=== PATIENT | female | born 1970 | race Caucasian/White ===

== ENCOUNTER 2020-10-13 14:28 | Outpatient (CLI) | payer OTHER, SELFPAY ==
--- NOTE | ~2020-10-13 | MM_ITS ---
EXAMINATION: MM screening lexis BI w placido HISTORY: Screening TECHNIQUE: Craniocaudal and mediolateral oblique 3-D tomosynthesis images were obtained and synthetic 2-D images were generated. CAD analysis was submitted and interpreted. COMPARISON: Comparison to multiple prior studies sequentially, with oldest reviewed study dated 05/31. BREAST PARENCHYMAL COMPOSITION: There are scattered areas of fibroglandular density. FINDINGS: There is no evidence of suspicious mass, calcification, or architectural distortion to sugg est malignancy in either breast. There has been no suspicious interval change. IMPRESSION: 1. No mammographic evidence of malignancy. 2. Recommend routine screening mammography in one year. BI-RADS Category 1: Negative Reviewed, dictated and finalized at location A.
== END 2020-10-13 14:29 | disposition home or self-care (01) ==
PROVIDERS: PCP Emergency Medicine; Visit Provider Obstetrics & Gynecology
DX: Z12.31 Encounter for screening mammogram for malignant neoplasm of breast (principal)
CPT/HCPCS: 77063; 77067

== ENCOUNTER 2021-06-17 16:13 | Emergency (ER) | payer OTHER, SELFPAY ==
--- NOTE | ~2021-06-17 | XR_ITS ---
EXAMINATION: XR chest 2V EXAM DATE: 06/17/2021 17:17 INDICATION: PT SOB Off On X 3 Wks,Also Increased Hr. TECHNIQUE: Frontal and lateral projections of the chest obtained and reviewed. There is no prior brad dy for comparison. FINDINGS: The lungs are clear. There are no pleural effusions. The cardiomediastinal silhouette is within normal limits. There is no pneumothorax suspected. The bones and soft tissues are unremarkab le. There are cholecystectomy clips. IMPRESSION: No acute cardiopulmonary findings. Reviewed, dictated and finalized at location G. TURE WINDER
--- NOTE | 2021-06-17 16:14 | ECG_ITS ---
Measurements Intervals [place] Rate: 88 P: 5 NC: 148 QRS: 4 QRSD: 98 T: 64 QT: 359 QTc: 436 Interpretive Statements SINUS RHYTHM BORDERLINE ST-T WAVE ABNORMALITY- ANT/HIGH LAT LEADS BORDERLINE ECG Electronically Signed On 06-17-2021 18:14:17 STATOR PLATE WASHER by Castillo Perez D.O.
[2021-06-17 16:54] VITALS: BP 126/84; PULSE 84; RESP 16; TEMP 36.2; O2SAT 97
--- NOTE | 2021-06-17 17:07 | ED.ARRPALP ---
HPI - Arrhythmia/Palpitations General Chief Complaint: Arrhythmia/Palpitations Stated Complaint: sob, palpations Time Seen by Provider: 06/17/21 16:45 Source: patient Mode of arrival: ambulatory Limitations: no limitations History of Present Illness HPI narrative: Patient is a 50-year-old female complaining palpitations accompanied by shortness of breath that started earlier today, had 2 episodes of but now resolved. Patient admits to having a few drinks last night and also a skinny darren today. Patient denies any chest pain, abdominal pain, nausea, vomiting, diaphoresis, fever or chills. Related Data Home Medications Medication Instructions Recorded Confirmed rosuvastatin mg 06/17/21 06/17/21 Allergies Allergy/AdvReac Type Severity Reaction Status Date / Time No Known Allergies Allergy Unknown Verified 06/17/21 16:56 Review of Systems Review of Systems: All systems reviewed & are unremarkable except as noted in HPI and below Constitutional: Constitutional: Denies body ache(s), Denies chills, Denies excessive sweating, Denies fatigue, Denies fever(s), Denies headache(s), Denies lethargy, Denies malaise, Denies weakness and Denies weight loss Eyes: Eyes: Denies blurry vision, Denies change in vision and Denies loss of vision ENT: Denies dizziness, Denies ear discharge, Denies headache(s), Denies lip swelling, Denies epistaxis, Denies nasal congestion, Denies neck pain, Denies throat swelling and Denies tongue swelling Cardiovascular: Cardiovascular: Denies chest pain, Denies chest pain at rest, Denies chest pain with activity, Denies diaphoresis, Denies rapid heart rate, Denies edema, Denies irregular heart rhythm, Denies lightheadedness, Denies dyspnea and Denies dyspnea on exertion Respiratory: Respiratory: Denies chest congestion, Denies cough, Denies hemoptysis, Denies dyspnea and Denies dyspnea on exertion Gastrointestinal: Gastrointestinal: Denies abdominal pain, Denies melena, Denies hematochezia, Denies diarrhea, Denies nausea, Denies vomiting and Denies hematemesis Musculoskeletal: Musculoskeletal: Denies abnormal gait, Denies deformity, Denies joint swelling, Denies limited range of motion, Denies neck pain and Denies numbness Neurologic: Denies Abnormal speech present, Denies abnormal gait, Denies confusion, Denies dizziness, Denies headache(s), Denies focal weakness, Denies loss of vision, Denies numbness, Denies Other visual disturbances, Denies Sensory deficit (Neuro) and Denies weakness Psychiatric: Psychiatric: Denies confusion, Denies depression, Denies auditory hallucinations, Denies homicidal ideation and Denies suicidal ideation Endocrine: Endocrine: Denies cold intolerance, Denies excessive sweating, Denies fatigue, Denies heat intolerance and Denies palpitations Hematologic/Lymphatic: Hematologic/Lymphatic: Denies easy bleeding and Denies easy bruising Allergic/Immunologic: Allergic/Immunologic: Denies lip swelling, Denies throat swelling and Denies tongue swelling [facility] Past Medical History Medical History Adenomatous colon polyp Angiomyxoma Colitis GERD (gastroesophageal reflux disease) High risk HPV infection 08/18/20 Hyperlipidemia Rectal bleeding Surgical History Surgical History H/O esophagogastroduodenoscopy Hx of cholecystectomy Family History Family History Father Hypertension Family history of diabetes mellitus in first degree relative Grandparent Family history of malignant neoplasm of ovary Family history of pulmonary embolism, Onset Age: 64 Other Carcinoma of colon Family history of malignant neoplasm of male breast Social History Social History Smoking status: Never smoker Second hand tobacco smoke exposure: No Alcohol intake
[2021-06-17 17:18] LABS: Basophils Percent Auto 0.8 % (0.2-1.2); Eosinophils Absolute Auto 0.2 K/mm3 (0-0.3); Hematocrit 42.5 % (37.0-47.0); Hemoglobin 13.5 g/dL (12.0-15.0); Immature Granulocyte Absolute 0.02 K/mm3 (0.00-0.031); Immature Granulocyte Percent A 0.4 % (0-0.5); Lymphocytes Absolute Auto 1.95 K/mm3 (0.9-3.2); Lymphocytes Percent Auto 38.9 % (18.3-44.2); Mean Corpuscular HGB Conc 31.8 g/dl (32-36); Mean Corpuscular Hemoglobin 28.3 pg (26-34); Mean Corpuscular Volume 89.1 fl (80-100); Mean Platelet Volume 10.5 fl (7.4-10.4); Monocytes Absolute Auto 0.3 K/mm3 (0.1-0.6); Monocytes Percent Auto 6.6 % (2.6-8.5); Neutrophils Absolute Auto 2.5 K/mm3 (1.3-6.7); Neutrophils Percent Auto 50.3 % (45.5-73.1); Platelet Count Result 279 k/mm3 (150-375); Red Blood Count 4.77 M/mm3 (4.2-5.4)
[2021-06-17 17:29] LABS: Anion Gap 9 mmol/L (8-16); Blood Urea Nitrogen 10 mg/dL (7-17); Calcium 9.4 mg/dL (8.4-10.2); Carbon Dioxide 26 mmol/L (22-30); Chloride 107 mmol/L (98-107); Estimated CRCL calculation 58 ml/min; Estimated Glomerular Filt Rate > 60; Glucose 64 mg/dL (65-110); Potassium 3.5 mmol/L (3.4-5.0); Sodium 142 mmol/L (137-145)
[2021-06-17 17:41] LABS: Troponin I < 0.012 ng/mL (0.000-0.034)
[2021-06-17 17:42] LABS: D Dimer 0.27 ug/mL (<0.48)
[2021-06-17 18:35] VITALS: BP 116/75; PULSE 70; RESP 16; O2SAT 98
== END 2021-06-17 18:36 | disposition home or self-care (01) ==
PROVIDERS: Emergency Provider Emergency Medicine; PCP Emergency Medicine
DX: R00.2 Palpitations (principal); Z86.010 Personal history of colon polyps; K21.9 Gastro-esophageal reflux disease without esophagitis; E78.5 Hyperlipidemia, unspecified; R94.31 Abnormal electrocardiogram [ECG] [EKG]
CPT/HCPCS: 36415; 71046; 80048; 84484; 85025; 85380; 93005; 99284

== ENCOUNTER 2021-11-06 09:18 | Outpatient (CLI) | payer OTHER, SELFPAY ==
--- NOTE | ~2021-11-06 | US_ITS ---
EXAMINATION: US soft tissue groin RT DATE: 11/06/2021 09:39 INDICATION: Right lower quadrant and right groin pain. TECHNIQUE: Grayscale and Doppler ultrasound images of the right groin and inguinal area, in the area of pain were obtained. COMPARISON: None. FINDINGS: No solid or cystic mass. No fluid collection. No change with the Valsalva maneuver. IMPRESSION: 1. No sonographic abnormality in the right groin/right inguinal area. Reviewed, dictated and finalized at location K.
== END 2021-11-06 09:19 ==
PROVIDERS: PCP Emergency Medicine; Referring Provider Obstetrics & Gynecology; Visit Provider Surgery
DX: R10.31 Right lower quadrant pain (principal)
CPT/HCPCS: 76882

== ENCOUNTER 2021-11-16 15:13 | Outpatient (CLI) | payer OTHER, SELFPAY ==
--- NOTE | ~2021-11-16 | MM_ITS ---
EXAMINATION: MM screening lexis BI w placido HISTORY: Screening TECHNIQUE: Craniocaudal and mediolateral oblique 3-D tomosynthesis images were obtained and synthetic 2-D images were generated. CAD analysis was submitted and interpreted. COMPARISON: Comparison to multiple prior studies sequentially, with oldest reviewed study dated 07/23. BREAST PARENCHYMAL COMPOSITION: There are scattered areas of fibroglandular density. FINDINGS: There is no evidence of suspicious mass, calcification, or architectural distortion to sugg est malignancy in either breast. There has been no suspicious interval change. IMPRESSION: 1. No mammographic evidence of malignancy. 2. Recommend routine screening mammography in one year. BI-RADS Category 1: Negative Reviewed, dictated and finalized at location A.
== END 2021-11-16 15:14 | disposition home or self-care (01) ==
PROVIDERS: PCP Emergency Medicine; Visit Provider Obstetrics & Gynecology
DX: Z12.31 Encounter for screening mammogram for malignant neoplasm of breast (principal)
CPT/HCPCS: 77063; 77067

== ENCOUNTER → 2021-11-22 10:54 | Outpatient (CLI) | payer OTHER, SELFPAY ==
--- NOTE | ~2021-11-22 | CT_ITS ---
EXAMINATION: CT pelvis wo con DATE: 11/22/2021 11:18 INDICATION: Right lower quadrant and groin pain TECHNIQUE: Computed tomography (CT) of the pelvis was performed without intravenous contrast. The dos e-length product was 546.75 mGy-cm. Automated exposure control and iterative reconstruction technique were employed. COMPARISON: CT dated 01/19/2019 FINDINGS: The appendix is normal caliber. There is a small appendicolith. No surrounding periappendic eal inflammation. Small fat-containing umbilical hernia. Nonobstructive bowel gas pattern. No signifi cant vascular abnormality. No lymphadenopathy. There is colonic diverticula without evidence for dive rticulitis. No abnormal pelvic masses or fluid collections. Bladder is unremarkable. There are small fat-containing inguinal hernias. IMPRESSION: 1. Small fat-containing inguinal hernias. 2: Small appendicolith without secondary findings to suggest appendicitis. Reviewed, dictated and finalized at location A.
== END ==
PROVIDERS: PCP Emergency Medicine; Visit Provider Surgery
DX: R10.31 Right lower quadrant pain (principal); K40.90 Unilateral inguinal hernia, without obstruction or gangrene, not specified as recurrent; K38.1 Appendicular concretions
CPT/HCPCS: 72192

== ENCOUNTER 2023-04-23 08:18 | Outpatient (CLI) | payer OTHER, SELFPAY ==
--- NOTE | ~2023-04-23 | MM_ITS ---
EXAMINATION: MM screening lexis BI w placido HISTORY: Screening TECHNIQUE: Craniocaudal and mediolateral oblique 3-D tomosynthesis images were obtained and synthetic 2-D images were generated. CAD analysis was submitted and interpreted. COMPARISON: Comparison to multiple prior studies sequentially, with oldest reviewed study dated 08/26. BREAST PARENCHYMAL COMPOSITION: There are scattered areas of fibroglandular density. FINDINGS: There is no evidence of suspicious mass, calcification, or architectural distortion to sugg est malignancy in either breast. There has been no suspicious interval change. IMPRESSION: 1. No mammographic evidence of malignancy. 2. Recommend routine screening mammography in one year. BI-RADS Category 1: Negative Reviewed, dictated and finalized at location A. HNUT MACHINE OPERATOR HELPER
== END 2023-04-23 08:19 | disposition home or self-care (01) ==
PROVIDERS: PCP Emergency Medicine; Visit Provider Obstetrics & Gynecology
DX: Z12.31 Encounter for screening mammogram for malignant neoplasm of breast (principal)
CPT/HCPCS: 77063; 77067

== ENCOUNTER 2023-09-25 01:19 | Day surgery (SDC) | payer OTHER, SELFPAY ==
[2023-09-12 10:47] VITALS: BMI 25.7
[2023-09-25 06:44] VITALS: BP 112/77; PULSE 70; RESP 20; TEMP 36.1; O2SAT 100
[2023-09-25] MEDS: LACTATED RINGERS 1,000 ML 150 ML IV CONT (06:59)
--- NOTE | 2023-09-25 07:21 | WPDANESEPPF ---
Anes - Initial Pre Proc Eval Procedure: Operation Date: 09/25/23 08:00 Proposed Procedures p Colonoscopy - Sal Ariza MD Date/Time: 09/25/23 07:21 Surgeon: Sal Ariza MD Pre Op Diagnosis: Personal history colon polyps Patient Data Age: 53 Gender: F Height: 1.63 m Weight: 67.4 kg Last Vital Signs Temp 97.0 F L 09/25/23 06:44 Pulse 70 09/25/23 06:44 Resp 20 09/25/23 06:44 BP 112/77 09/25/23 06:44 Pulse Ox 100 09/25/23 06:44 O2 Del Method Room Air 09/25/23 06:44 Allergies Allergy/AdvReac Type Severity Reaction Status Date / Time No Known Allergies Allergy Unknown Verified 09/25/23 06:43 Home Medications Medication Instructions Recorded Confirmed Type calcium carbonate (Calcium 500) 500 mg PO DAILY 10/02/21 09/12/23 History multivitamin 1 tablet PO DAILY 10/02/21 09/12/23 History tirzepatide 09/12/23 09/12/23 History Patient hx anesthesia problems: none Family hx anesthesia problems: none Results Review: All pre-operative results and documents have been reviewed as part of the pre-operative evaluation. 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 08/18/20 Hyperlipidemia Rectal bleeding Surgical History Surgical History H/O esophagogastroduodenoscopy H/O laparoscopy Hx of cholecystectomy S/P ovarian cystectomy Family History Family History Father Hypertension Family history of diabetes mellitus in first degree relative Grandparent Family history of malignant neoplasm of ovary Family history of pulmonary embolism, Onset Age: 64 Other Carcinoma of colon Family history of malignant neoplasm of male breast Social History Social History Smoking status: Never smoker Second hand tobacco smoke exposure: No Alcohol intake: current Alcohol use details: social Substance use: never Lack of Transportation: No Lack of Food: Never True Current Housing: I Have Housing Concerned About Future Housing: No Difficulty Paying Gas/Electric Bills: No Difficulty Paying for Meds: No Currently Unemployed: No Education: Bachelor's Degree Difficulty w/ Childcare or Family Care: No Living arrangements: with family Gender identity (if verbalized by the patient): Female Spiritual care concerns: No Anes - Eval Final PreProcedure Day of Procedure 09/25/23 07:21 Patient weight: normal Heart: regular rate and rhythm Lungs: clear to auscultation Airway: Mallampati scale class II Neurological: alert and oriented Last oral intake: >/= 8 hours ASA classification: II Emergent: no Anesthetic plan: proceed Anesthesia type and monitoring: general GIVS and standard monitoring Results Review: All pre-operative results and documents have been reviewed as part of the pre-operative evaluation. Informed Consent: The patient's anesthetic plan and its attendant risks and benefits were discussed with the patient/family/POA. Questions were solicited and answers provided to the satisfaction of the patient/family/POA.
--- NOTE | 2023-09-25 08:08 | PM.HPGS ---
History of Present Illness History of Present Illness Consent: Risks, benefits, and alternatives have been discussed and questions answered. Patient agrees to proceed with procedure. Chief complaint: Personal history colon polyps Narrative: María Beltran is a 53 year old female with colon polyp in 2019 Review of Systems Review of Systems: All systems reviewed & are unremarkable except as noted in HPI and below PMFSH Past Medical History Medical History (Updated 09/25/23 @ 08:10 by Sal Ariza MD) Adenomatous colon polyp Adenomatous colon polyp Angiomyxoma Colitis GERD (gastroesophageal reflux disease) High risk HPV infection 08/18/20 Hyperlipidemia Rectal bleeding Surgical History Surgical History H/O esophagogastroduodenoscopy H/O laparoscopy Hx of cholecystectomy S/P ovarian cystectomy Family History Family History Father Hypertension Family history of diabetes mellitus in first degree relative Grandparent Family history of malignant neoplasm of ovary Family history of pulmonary embolism, Onset Age: 64 Other Carcinoma of colon Family history of malignant neoplasm of male breast Social History Social History Smoking status: Never smoker Second hand tobacco smoke exposure: No Alcohol intake: current Alcohol use details: social Substance use: never Lack of Transportation: No Lack of Food: Never True Current Housing: I Have Housing Concerned About Future Housing: No Difficulty Paying Gas/Electric Bills: No Difficulty Paying for Meds: No Currently Unemployed: No Education: Bachelor's Degree Difficulty w/ Childcare or Family Care: No Living arrangements: with family Gender identity (if verbalized by the patient): Female Spiritual care concerns: No Meds Home Medications and Allergies Home Medications Medication Instructions Recorded Confirmed Type calcium carbonate (Calcium 500) 500 mg PO DAILY 10/02/21 09/12/23 History multivitamin 1 tablet PO DAILY 10/02/21 09/12/23 History tirzepatide 09/12/23 09/12/23 History Allergies Allergy/AdvReac Type Severity Reaction Status Date / Time No Known Allergies Allergy Unknown Verified 09/25/23 06:43 Vital Signs Vital Signs - 24 hr 09/25/23 06:44 Temperature 97.0 F L Pulse Rate 70 Respiratory Rate 20 Blood Pressure 112/77 Pulse Oximetry 100 Oxygen Delivery Room Air Exam Const: General: comfortable and no acute distress HENMT: Face/Nose/Sinus: Normal nares present Eyes: General: appearance normal, both eyes and all related structures Neck: Neck: no JVD Resp: Auscultation: clear to auscultation bilaterally Cardio: Rate: regular rate Rhythm: regular rhythm GI: Inspection: non-distended GI Palp: Yes Soft to palpation Skin: General skin exam: normal color Neuro: General: gait normal Speech: normal speech Extrem: General: normal to inspection Psych: Mental Status: mental status grossly normal Assessment and Plan Assessment and plan (1) Adenomatous colon polyp: Code(s): D12.6 - Benign neoplasm of colon, unspecified Status: Acute Assessment and Plan: colonoscopy
[2023-09-25 08:29] VITALS: BP 91/59; PULSE 73; RESP 20; O2SAT 98
[2023-09-25 08:39] VITALS: BP 89/57; PULSE 70; RESP 20; O2SAT 98
== END 2023-09-25 09:00 | disposition home or self-care (01) ==
PROVIDERS: PCP Emergency Medicine; Visit Provider Internal Medicine Gastroenterology
PROC: 0DJD8ZZ Inspection of Lower Intestinal Tract, Via Natural or Artificial Opening Endoscopic (ICD-10-PCS; CPT 45378; principal; 2023-09-25 08:00)
DX: Z12.11 Encounter for screening for malignant neoplasm of colon (principal); K57.30 Diverticulosis of large intestine without perforation or abscess without bleeding; K64.8 Other hemorrhoids; Z86.010 Personal history of colon polyps
CPT/HCPCS: 45378; J2704; J7120

== ENCOUNTER 2024-09-28 10:38 | Outpatient (CLI) | payer OTHER, SELFPAY ==
--- NOTE | ~2024-09-28 | US_ITS ---
EXAMINATION: US soft tissue buttock RT DATE: 09/28/2024 11:22 INDICATION: Attempting to locate hormone replacement therapy pellets TECHNIQUE: Multiple grayscale and Doppler ultrasound images of the right buttocks region of concern w ere obtained. COMPARISON: None FINDINGS/IMPRESSION: There is a normal appearance to the subcutaneous fat and underlying musculature at the region of conc gene at the right buttocks. No foreign bodies identified. Reviewed, dictated and finalized at location A.
== END 2024-09-28 10:39 | disposition home or self-care (01) ==
PROVIDERS: PCP Nurse Practitioner Obstetrics & Gynecology; Visit Provider Emergency Medicine
DX: M79.5 Residual foreign body in soft tissue (principal)
CPT/HCPCS: 76705

== ENCOUNTER 2024-09-28 10:41 | Outpatient (CLI) | payer OTHER, SELFPAY ==
--- NOTE | ~2024-09-28 | US_ITS ---
EXAM: PELVIC ULTRASOUND HISTORY: N95.0 - Postmenopausal bleeding COMPARISON: None. FINDINGS: UTERUS: 8.2 x 4.7 x 5.2 cm. The uterus is retroverted and retroflexed The endometrial complex measures 10.2 mm. The uterus has a striated appearance suggesting adenomyosis RIGHT OVARY: Despite prolonged interrogation, the right ovary was not visualized. LEFT OVARY: The left ovary is unremarkable in echogenicity and size measuring 2.5 x 0.7 x 1.1 cm Dopplerable flow is identified. No free fluid is identified within the pelvis. IMPRESSION: Striated appearance of the uterus, suggesting adenomyosis. Despite prolonged interrogation, the right ovary was not visualized. The left ovary is unremarkable Reviewed, dictated and finalized at location A.
== END 2024-09-28 10:42 | disposition home or self-care (01) ==
LOC: MICIMG 10:42
PROVIDERS: PCP Emergency Medicine; Visit Provider Nurse Practitioner Obstetrics & Gynecology
DX: N85.2 Hypertrophy of uterus (principal); N95.0 Postmenopausal bleeding
CPT/HCPCS: 76830; 76856

== ENCOUNTER 2025-03-04 12:39 | Outpatient (CLI) | payer OTHER, SELFPAY ==
--- NOTE | ~2025-03-04 | MM_ITS ---
EXAMINATION: MM screening lexis BI w [facility] HISTORY: Screening TECHNIQUE: Craniocaudal and mediolateral oblique 3-D tomosynthesis images were obtained and synthetic 2-D images were generated. CAD analysis was submitted and interpreted. COMPARISON: Comparison to multiple prior studies sequentially, with oldest reviewed study dated , 09/22/2015. BREAST PARENCHYMAL COMPOSITION: There are scattered areas of fibroglandular density. FINDINGS: There is no evidence of suspicious mass, calcification, or architectural distortion to suggest malignancy in either breast. IMPRESSION: 1. No mammographic evidence of malignancy. 2. Recommend routine screening mammography in one year. BI-RADS Category 1: Negative Reviewed, dictated and finalized at location B.
--- OUTSIDE RECORDS SUMMARY | 2025-03-04 13:26 | XMS_ITS | Clinical Summary ---
Author Organization [employer] [facility] Address [address] [place]: Epic Prelude ADT [place] [id number] Care Team Providers Care Olap Developer Name Role Phone Unavailable Primary Care Provider Unavailabl e Medications semaglutide (Ozempic) 0.25 mg or 0.5 mg(2 mg/1.5 mL) Pen Injector INJECT 0.25 MG UNDER THE SKIN ONCE WEEKLY FOR 4 WEEKS 1.5 mL 2 Active semaglutide (Ozempic) 0.25 mg or 0.5 mg(2 mg/1.5 mL) Pen Injector Inject 0.5 mg by subcutaneous injection every 7 days. 1.5 mL 3 Active semaglutide, weight loss, (Wegovy) 0.25 mg/0.5 mL Pen Injector Inject 0.5 mL (0.25 mg) by subcutaneous injection every 7 days. 2 mL 3 Active rosuvastatin (Crestor) 10 mg tablet Take 1 Tablet (10 mg) by mouth daily. 90 Tablet 1 3 Active doxycycline monohydrate 100 mg Tablet Take 1 Tablet (100 mg) by mouth daily. Start 2 days prior to travel and take throughout travel. Continue for 4 weeks after return to [facility]. 45 Tablet 05/21/2023 11:13 AM BOAT PAINTER 4 Active metroNIDAZOLE (Nuvessa) 1.3 % (65 mg/5 gram) Gel INSERT 1 APPLICATORFUL VAGINALLY AT BEDTIME A SINGLE DOSE. 5 Gram 06/20/2023 5:22 PM BOAT PAINTER 4 Active meloxicam (MOBIC) 15 mg tablet Take 1 Tablet (15 mg) by mouth daily. 30 Tablet 11/07/2023 4:13 PM CDT 4 Active est estrogens-methy lTESTOSTERone (ESTRATEST) 1.25-2.5 mg tablet Take 1 Tablet by mouth daily. 60 Tablet 4 Active progesterone micronized (PROMETRIUM) 200 mg Capsule Take 1 Capsule (200 mg) by mouth daily at bedtime. 60 Capsule 01/16/2024 6:43 PM CDT 4 Active oseltamivir (Tamiflu) 75 mg capsule Take 1 Capsule (75 mg) by mouth 2 times daily. 10 Capsule 05/11/2024 12:47 PM BOAT PAINTER 4 Active azithromycin (Zithromax Z-Jose) 250 mg tablet Take 2 tablets by mouth for 1 day, then 1 tablet (250 mg) by mouth once daily for 4 days. 6 Tablet 05/11/2024 12:47 PM BOAT PAINTER 4 Active AUTOMOTIVE SPECIALTY TECHNICIAN Thyroid 60 mg tablet Take 1/2 tablet by mouth on an empty stomach daily x 7 days (30 mg), then take 1 tablet (60 mg) on an empty stomach once daily thereafter. 30 Tablet 3 07/31/2024 12:17 PM CDT 5 Active progesterone micronized (PROMETRIUM) 200 mg Capsule Take 1 capsule by mouth daily at bedtime 30 Capsule 3 10/02/2024 2:47 PM CDT 5 Active Social History Tobacco Use Types Packs/Day Years Used Date Smoking Tobacco: Never Assessed Comments Unknown Sex and Gender Information Value Date Recorded Sex Assigned at Not on file Legal Sex Female 3:27 PM CDT Gender Identity Not on file Sexual Orientation Not on file Plan of Treatment Health Maintenance Due Date Last Done Comments DTAP/TDAP/TD VACCINES (1 - Tdap) 1988 HEPATITIS B VACCINES (1 of 3 - 19+ 3-dose series) 08/12 HPV/Cotest (21-29) 1990 CERVICAL CANCER SCREENING 09/05/1999 HPV/Cotest (30-65) 09/05/1999 PAP SMEAR 09/05/1999 BREAST CANCER SCREENING 2009 COLORECTAL SCREENING 2014 Colorectal Cancer Screening 2014 FIT-DNA Q 3 years 2014 FIT/FOBT Q 1 year 2014 Flex Sig/CT Colonography Q 5 years 2014 ZOSTER VACCINE (1 of 2) 09/05/2019 INFLUENZA VACCINE (#1) 2024 Insurance RX [employer] (INTERNAL) [facility] [employer] RX [facility] [employer]
--- OUTSIDE RECORDS SUMMARY | 2025-03-04 13:26 | XMS_ITS | Clinical Summary ---
Author Organization [facility] Address [address] [place] [phone] Phone Care Team Providers Care Mental Health Tech Name Role Phone Emmett Ya Primary Care Provider [phone] Allergies No known active allergies Medications ibuprofen (MOTRIN) 600 MG Tablet 01/19/2019 Active famotidine (PEPCID) 20 MG Tablet 01/19/2019 Active cephALEXin (KEFLEX) 500 MG Capsule Take 1 Cap by mouth 3 times daily. 30 Cap 02/11/2019 Active metroNIDAZOLE (FLAGYL) 500 MG Tablet Take 1 Tab by mouth 3 times daily. 30 Tab 02/11/2019 Active omeprazole (PRILOSEC) 20 MG CAPSULE DELAYED RELEASE Take 1 Cap by mouth daily. 30 Cap 3 03/06/2019 Active Family History Medical History Relation Name Comments Colon Cancer Paternal Uncle Relation Name Status Comments Paternal Uncle Social History Tobacco Use Types Packs/Day Years Used Date Smoking Tobacco: Never Smokeless Tobacco: Never Alcohol Use Standard Drinks/Week Comments Yes 0 (1 standard drink = 0.6 oz pur e alcohol) social Comments Unknown Sex and Gender Information Value Date Recorded Sex Assigned at Not on file Legal Sex Female 7:08 PM CDT Gender Identity Not on file Sexual Orientation Not on file Last Filed Vital Signs Vital Sign Reading Time Taken Comments Blood Pressure 126/84 01/20/2019 12:44 PM CDT Pulse 63 01/20/2019 12:44 PM CDT Temperature 36.2 C (97.1 F) 01/20/2019 12:44 PM CDT Respiratory Rate 18 01/20/2019 12:44 PM CDT Oxygen Saturation 98% 01/20/2019 12:44 PM CDT Inhaled Oxygen Concentration - - Weight 73.9 kg (163 lb) 01/20/2019 12:44 PM CDT Height 163.8 cm (5' 4.5) 01/20/2019 12:44 PM CD T Body Mass Index 27.55 01/20/2019 12:44 PM CDT Plan of Treatment Health Maintenance Due Date Last Done Comments Hepatitis C Virus (HCV) Screening 1969 TdaP Immunization 1969 Hepatitis B Immunization (1 of 3 - 19+ 3-dose series) 1988 Pap Smear 1990 Cervical Cancer Screening (CCS) 09/05/1999 HPV/Cotest 09/05/1999 Cologuard 2014 Immunochemical Fecal Occult Blood 2014 Pneumococcal Immunization (5 0+ years) (1 of 1 - PCV) 09/05/2019 Zoster Immunization (1 of 2) 09/05/2019 Colonoscopy 03/16/2024 03/16/2019 Colorectal Cancer Screening 03/16/2024 Influenza Immunization (#1) 2025 SARS-COV-2 Immunization ( season) 2025 05/09/2021, 09/01/2020, 08/11/2020 Respiratory Syncytial Virus (RSV) Immunization (Adult) (1 - 1-dose 75+ series) 2044 Human Papillomavirus (HPV) Immunization Aged Out No longer eligible b ased on patient's age to complete this topic Meningococcal Immunization (ACWY) Aged Out No longer eligible b ased on patient's age to complete this topic Rotavirus Immunization Aged Out No lo nger eligible based on patient's age to complete this topic Procedures Procedure Name Priority Date/Time Associated Diagnosis Comments COLONOSCOPY Routine 03/16/2019 from Last 3 Months or Most Recently Relevant to Health Maintenance Results * HM COLONOSCOPY (03/16/2019) Kailash Perez DO PROCEDURE/MINOR SURGICAL ORDERA BLES Final Result from Last 3 Months or Most Recently Relevant to Health Maintenance Insurance [facility] Care Teams Mental Health Tech Relationship Specialty Start Date End Date Emmett [place] [address] [place] [address] PCP - General Family Medicine 02/02/19
--- OUTSIDE RECORDS SUMMARY | 2025-03-04 13:26 | XMS_ITS | Clinical Summary ---
Author Organization [facility] [address] Address [address] [place] [address] Care Team Providers Care Segment Assembler Name Role Phone Marshall Richards MD Primary Care Provider [phone] Allergies No known active allergies Medications No known medications Active Problems Problem Noted Date Diagnosed Date Rectal bleeding 12/01/2018 Assessment & Plan (12/01/2018 2:44 PM CDT): Increase in frequency and amount of bright red blood in stool over the last couple of weeks. Pt says her Paternal Uncle was diagnosed with colon cancer in his mid 50's to 60's. Will schedule colonoscopy with Dr. Pritchett and follow up about 1 month after colonoscopy is completed. GERD (gastroesophageal reflux disease) 9 Assessment & Plan (12/01/2018 2:42 PM CDT): Has heartburn and dyspepsia almost daily. Taking zantac 150 mg OTC QD. Will increase to zantac 300 mg daily. Discussed importance of following GERD diet and she was given an educational printout on details of this diet. 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 Surgical History Surgery Date Site/Laterality Comments GALLBLADDER SURGERY Gallbladder Surgery - (Added by TW Conv) ABDOMINAL SURGERY Abdominal Surgery - (Added by TW Conv) Family History Medical History Relation Name Comments Diabetes Father Family history of diabetes mellitus - (Added by Conv) Hypertension Father Family history of hypertension - (Added by Conv) Skin cancer Mother Family history of skin cancer - (Added by Conv) Relation Name Status Comments Father Mother Social History Tobacco Use Types Packs/Day Years Used Date Smoking Tobacco: Former Smokeless Tobacco: Never Comments Unknown Sex and Gender Information Value Date Recorded Sex Assigned at Not on file 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 Gender Identity Not on file Sexual Orientation Not on file Obstetrics History Last Filed Vital Signs Vital Sign Reading Time Taken Comments Blood Pressure 122/78 12/01/2018 2:17 PM CDT Pulse 70 12/01/2018 2:17 PM CDT Temperature 36.8 C (98.2 F) 12/01/2018 2:17 PM CDT Respiratory Rate 18 12/01/2018 2:17 PM CDT Oxygen Saturation 97% 12/01/2018 2:17 PM CDT Inhaled Oxygen Concentration - - Weight 75.3 kg (166 lb) 12/01/2018 2:17 PM CDT Height 162.6 cm (5' 4) 12/01/2018 2:17 PM CDT Body Mass Index 28.49 12/01/2018 2:17 PM CDT Plan of Treatment Not on file Insurance [facility] [employer] CHOICE ANTHEM ACCESS CHOICE Care Teams Segment Assembler Relationship Specialty Start Date End Date Marshall Richards MD [facility] [place] [address] PCP - General Family Medicine 12/01/18
== END 2025-03-04 12:40 | disposition home or self-care (01) ==
LOC: ANHFOHIMG 12:40
PROVIDERS: PCP Emergency Medicine; Visit Provider Obstetrics & Gynecology
DX: Z12.31 Encounter for screening mammogram for malignant neoplasm of breast (principal)
CPT/HCPCS: 77063; 77067